=== PATIENT | female | born 1945 | race Two or more races ===

== ENCOUNTER → 2024-12-07 | Outpatient (CLI) | payer MEDICARE, SELFPAY ==
--- NOTE | 2024-12-07 | XR_ITS ---
Examination: Screening digital mammography, bilateral Computer aided detection 3-D breast Tomosynthesis, bilateral Date and time of exam: December 07, 2024 1347 hours Compared to mammograms dating to November 09, 2023 Indication: Screening, patient states left breast pain 3 years Technique: Nonmagnified MLO, CC views of the breasts to been obtained, reconstructed from 3-D Tomosynthesis images. R2 computer aided detection program utilized for evaluation of suspicious masses and/or abnormal calcifications. 3-D Tomosynthesis images obtained. Findings: Scattered areas of fibroglandular density Benign calcifications. No interval suspicious masses Impression: BI-RADS category II: Benign Findings. Recommend 1 year follow-up mammogram. Given the patient's presentation, recommend follow-up repeat left breast sonography
[2024-12-07 15:34] LABS: Amphetamine/Methamp Scrn,U Negative (Negative); Barbiturate Screen,Urine Negative (Negative); Benzodiazepines Screen,Urine Negative (Negative); Benzoylecgonine Screen, Ur Negative (Negative); Fentanyl Screen,Urine Negative (Negative); Opiate Screen,Urine Positive (Negative); THC Screen,Urine Negative (Negative)
== END | disposition home or self-care (01) ==
LOC: CDIM 13:22 → SLDO 14:00
PROVIDERS: Referring Provider Nurse Practitioner Family; Visit Provider Radiology Diagnostic Radiology
DX: Z12.31 Encounter for screening mammogram for malignant neoplasm of breast (principal); R92.8 Other abnormal and inconclusive findings on diagnostic imaging of breast; R92.323 Mammographic fibroglandular density, bilateral breasts; Z79.891 Long term (current) use of opiate analgesic
CPT/HCPCS: 77063; 77067; 80307

== ENCOUNTER → 2025-01-10 | Outpatient (CLI) | payer MEDICARE, SELFPAY | END | disposition home or self-care (01) | LOC: CCTX 13:24 | PROVIDERS: PCP Family Medicine; Referring Provider Nurse Practitioner Family; Visit Provider Nurse Practitioner Family | DX: Z53.20 Procedure and treatment not carried out because of patient's decision for unspecified reasons (principal) ==

== ENCOUNTER → 2025-02-10 | Outpatient (CLI) | payer MEDICARE, SELFPAY ==
--- NOTE | 2025-02-10 13:30 | XR_ITS ---
Examination: MRI lumbar spine without contrast Date and time of exam: February 10, 2025 1359 hours INDICATIONS: Low back pain 3 months radiating to both legs Technique: Multiple MRI axial and sagittal sections lumbar spine. Sagittal T2-weighted images, TR 3500, TE 118 T1 weighted transverse sections, TR 688 T8.5, T2-weighted sagittal sections T1 weighted sagittal sections TR 621, TE 30 T2 axial sections, TR 4, 190, TE 84. Findings: Grade 1 spondylolisthesis L5 on S1 taking into account transitional S1 vertebral body Advanced disc narrowing at L4-L5, L5-S1 L5-S1 4 mm central lumbar disc bulge contiguous with the right and left S1 nerve roots with mild bilateral L5 ganglionic impression L4-L5 2 mm on the lumbar disc bulge L3-L4 2 mm upper lumbar disc bulge L2-L3 no disc protrusion L1-L2 no disc protrusion IMPRESSION: L5-S1 grade 1 spondylolisthesis, 4 mm central lumbar disc bulge contiguous with the right and left S1 nerve roots with mild bilateral L5 ganglionic compression
== END | disposition home or self-care (01) ==
LOC: SMRI 13:08
PROVIDERS: PCP Nurse Practitioner Family; Referring Provider Nurse Practitioner Family; Visit Provider Nurse Practitioner Family
DX: M51.370 Other intervertebral disc degeneration, lumbosacral region with discogenic back pain only (principal); M43.17 Spondylolisthesis, lumbosacral region; G95.20 Unspecified cord compression
CPT/HCPCS: 72148

== ENCOUNTER → 2025-04-06 | Outpatient (CLI) | payer MEDICARE, SELFPAY ==
--- NOTE | 2025-04-06 | XR_ITS ---
Examination: Bilateral hands, 6 views. Technique: AP, Oblique, Lateral each hand total 6 views Date and time of exam: April 06, 2025 1201 hours INDICATIONS: Bilateral hand and joint pain 6 months. FINDINGS: Severe osteopenia Mild to moderate diffuse narrowing joints of the wrists and hands bilaterally Advanced arthritic change bilateral first carpometacarpal joints Moderate arthritic change 2nd-5th distal interphalangeal joints and interphalangeal joints first digits bilaterally No josé erosions No foreign bodies Impression: Bilateral arthritic change as above
--- NOTE | 2025-04-06 12:00 | XR_ITS ---
Examination: CT chest, without intravenous contrast. Sagittal and coronal 2-D reconstructions. Exam date and time: April 06, 2025 1213 hours INDICATIONS: Left breast pain beginning several weeks ago CTDI:vol (mGy) 8.69 DLP: (mGycm) 289 Technique: Multiple 3.0 mm axial sections of the chest to been obtained. Bone and lung density settings are obtained. Sagittal and coronal 2-D reconstructions have been obtained. Low dose protocols were performed. One or more of the following dose reduction techniques were used; automated exposure control, adjustment of the mA and/or KV according to patient size, use of iterative reconstruction technique. Findings: No thoracic degenerative aneurysm dilatation Pulmonary artery segments are not enlarged Mild enlargement cardiac contour. No mediastinal lymphadenopathy No pneumonia or pulmonary edema or pleural disease 3 mm calcified granuloma right lower lobe Small pericardial effusion Benign liver cysts Contracted gallbladder with possible tiny gallstones No pancreatic mass IMPRESSION: No mediastinal lymphadenopathy No pneumonia or pulmonary edema or pleural disease Recommend hepatobiliary sonography to confirm gallstones
== END | disposition home or self-care (01) ==
LOC: CCTX 11:41
PROVIDERS: PCP Nurse Practitioner Family; Referring Provider Nurse Practitioner Family; Visit Provider Nurse Practitioner Family
DX: Z12.2 Encounter for screening for malignant neoplasm of respiratory organs (principal); M13.842 Other specified arthritis, left hand; M13.841 Other specified arthritis, right hand; N64.4 Mastodynia; Z87.891 Personal history of nicotine dependence
CPT/HCPCS: 71250; 73120

== ENCOUNTER → 2025-05-30 | Outpatient (CLI) | payer MEDICARE, SELFPAY ==
--- NOTE | 2025-05-30 13:30 | XR_ITS ---
Examination: Abdomen sonogram, Limited Date and time of exam: May 30, 2025, 1341 hours INDICATIONS: Contracted gallbladder with tiny gallstones on CT examination April 06, 2025 Technique: Real-time ricardo scale transabdominal sonographic images of the upper abdomen obtained. Findings: Suspicious for 3 mm gallstone. Normal gallbladder wall 0.2 cm Common bile duct 0.6 cm no stones. Pancreatic head 1.5 cm Liver 14.1 cm smooth contoured tiny liver cysts, the largest in the lower right lobe the liver 2.9 cm Normal hepatopedal portal venous flow Patent IVC IMPRESSION: Cholelithiasis, negative for cholecystitis
== END | disposition home or self-care (01) ==
PROVIDERS: PCP Nurse Practitioner Family; Referring Provider Nurse Practitioner Family; Visit Provider Nurse Practitioner Family
DX: K80.20 Calculus of gallbladder without cholecystitis without obstruction (principal)
CPT/HCPCS: 76705